=== PATIENT | female | born 1940 | race Caucasian/White ===

== ENCOUNTER 2022-09-27 13:15 | Inpatient (IN) | payer OTHER ==
[~2022-09-27] VITALS: Ht 160 cm; Wt 47.2 kg
[2022-09-27 13:20] VITALS: BP_SYST 142; PULSE 78; RESP 20; TEMP 97.8; O2SAT 95
[2022-09-27 14:25] LABS: BASOPHILS % (AUTO) 0.3 % (0.0-2.0); EOSINOPHILS # (AUTO) 0.1 K/uL (0.0-0.4); EOSINOPHILS % (AUTO) 1.6 % (0.0-4.0); HEMATOCRIT 33.1 % (36-48); HEMOGLOBIN 10.5 g/dL (12.0-16.0); LYMPHOCYTES # (AUTO) 2.2 K/uL (1.0-5.5); MEAN CORPUSCULAR HEMOGLOBIN 29 pg (27-31); MEAN CORPUSCULAR HGB CONC 32 % (32-36); MEAN CORPUSCULAR VOLUME 90 fL (79.0-98.0); MONOCYTES # (AUTO) 0.6 K/uL (0.0-1.0); MONOCYTES % (AUTO) 6.7 % (1.7-9.3); NEUTROPHILS # (AUTO) 5.5 K/uL (1.8-7.7); NEUTROPHILS % (AUTO) 65.4 % (40.0-70.0); PLATELET COUNT (AUTO) 223 K/uL (130-430); RED BLOOD CELL COUNT(AUTO) 3.67 MIL/uL (4.2-6.2); RED CELL DISTRIBUTION WIDTH 15.3 % (9.0-15.0); WHITE BLOOD COUNT (AUTO) 8.4 K/uL (4.8-10.8)
[2022-09-27 14:44] LABS: BILIRUBIN,URINE NEGATIVE (NEGATIVE); BLOOD, URINE 2+ (NEGATIVE); CLARITY/URINE CLOUDY (CLEAR); COLOR,URINE YELLOW (YELLOW); GLUCOSE,URINE NEGATIVE (NEGATIVE); KETONES,URINE TRACE (NEGATIVE); LEUKOCYTE ESTERASE ,URINE 2+ (NEGATIVE); NITRITE, URINE NEGATIVE (NEGATIVE); PH,URINE 7.5 (5.0-8.0); PROTEIN URINE 3+ (NEGATIVE)
[2022-09-27 14:45] LABS: ANION GAP 8 (5-15); CALCIUM 8.2 mg/dL (8.4-11.0); CHLORIDE 108 mmol/L (98-107); CREATININE 1.27 mg/dL (0.55-1.30); GLUCOSE 162 mg/dL (74-106); UREA NITROGEN, BLOOD 27 mg/dL (8-21)
[2022-09-27 14:49] LABS: BACTERIA,URINE MANY /HPF (None Seen); MUCUS,URINE None Seen /LPF (None Seen); WBC,URINE >100 /HPF (0-3)
[2022-09-27 15:03] LABS: ALANINE AMINOTRANSFERASE 12 U/L (12-78); ALBUMIN 2.5 g/dL (3.4-4.8); ASPARTATE AMINOTRANSFERASE 17 U/L (10-37); TOTAL BILIRUBIN 0.2 mg/dL (0.0-1.0)
[2022-09-27] MEDS ORDERED: NACL 0.9% 1,000 ML IV ONE ×2 (15:45→16:45)
[2022-09-27] MEDS ORDERED: cefTRIAXone 1 GM IVPB PREMIX 50 ML IV ONE (15:45)
[2022-09-27] MEDS ORDERED: PIPERACILLIN/TAZOBACTAM 2.25 GM in NS 50 ML IV ONE (17:00)
[2022-09-27] MEDS ORDERED: PIPERACILLIN/TAZOBACTAM 2.25 GM VIAL IV ONE ×2 (18:04→22:35)
[2022-09-27] MEDS ORDERED: VALS160T29 PO (18:08)
[2022-09-27] MEDS ORDERED: ATEN50TA PO (18:08)
[2022-09-27 18:50] VITALS: BP_SYST 154; PULSE 85; RESP 22; TEMP 96.8; O2SAT 95
[2022-09-27 19:00] VITALS: BP_SYST 133; PULSE 76; RESP 18; TEMP 97.6; O2SAT 76
[2022-09-27] MEDS ORDERED: MIRTAZAPINE 15 MG TABLET PO SCH (21:00)
[2022-09-27] MEDS: NACL 0.9% 1,000 ML IV SCH (21:59)
[2022-09-28 00:22] VITALS: BP_SYST 145; PULSE 81; RESP 19; TEMP 97.4; O2SAT 94
[2022-09-28] MEDS ORDERED: PIPERACILLIN/TAZOBACTAM 2.25 GM VIAL IV ONE (00:53)
[2022-09-28] MEDS: NACL 0.9% 1,000 ML IV SCH ×2 (04:00→14:12)
[2022-09-28 05:13] LABS: BASOPHILS % (AUTO) 0.4 % (0.0-2.0); EOSINOPHILS # (AUTO) 0.2 K/uL (0.0-0.4); HEMOGLOBIN 10.1 g/dL (12.0-16.0); LYMPHOCYTES # (AUTO) 2.2 K/uL (1.0-5.5); MEAN CORPUSCULAR HEMOGLOBIN 29 pg (27-31); MEAN CORPUSCULAR HGB CONC 33 % (32-36); MEAN CORPUSCULAR VOLUME 90 fL (79.0-98.0); MONOCYTES # (AUTO) 0.5 K/uL (0.0-1.0); MONOCYTES % (AUTO) 6.7 % (1.7-9.3); NEUTROPHILS # (AUTO) 4.7 K/uL (1.8-7.7); NEUTROPHILS % (AUTO) 61.9 % (40.0-70.0); PLATELET COUNT (AUTO) 228 K/uL (130-430); RED BLOOD CELL COUNT(AUTO) 3.45 MIL/uL (4.2-6.2); RED CELL DISTRIBUTION WIDTH 14.9 % (9.0-15.0); WHITE BLOOD COUNT (AUTO) 7.6 K/uL (4.8-10.8)
[2022-09-28 05:52] LABS: ALANINE AMINOTRANSFERASE 12 U/L (12-78); ALBUMIN 2.4 g/dL (3.4-4.8); ANION GAP 10 (5-15); ASPARTATE AMINOTRANSFERASE 17 U/L (10-37); CALCIUM 7.9 mg/dL (8.4-11.0); CHLORIDE 112 mmol/L (98-107); CREATININE 1.14 mg/dL (0.55-1.30); FREE T4 (FREE THYROXINE) 0.9 ng/dL (0.6-1.6); GLUCOSE 81 mg/dL (74-106); PHOSPHORUS 3.1 mg/dL (2.7-4.5); TOTAL BILIRUBIN 0.3 mg/dL (0.0-1.0); UREA NITROGEN, BLOOD 20 mg/dL (8-21)
[2022-09-28 06:11] LABS: TOTAL IRON BIND. CAPACITY 152 ug/dL (250-450)
[2022-09-28] MEDS: PIPERACILLIN/TAZOBACTAM 2.25 GM in NS 50 ML IV SCH ×5 (06:31→18:21)
[2022-09-28 08:00] VITALS: BP_SYST 176; PULSE 82; RESP 18; TEMP 97.4; O2SAT 97
[2022-09-28] MEDS: ATENOLOL 50 MG TABLET (TENORMIN) PO SCH (09:47)
[2022-09-28 11:04] VITALS: O2SAT 97
[2022-09-28 11:41] VITALS: BP_SYST 151; PULSE 66; RESP 16; TEMP 97.3; O2SAT 95
[2022-09-28 17:25] VITALS: BP_SYST 145; PULSE 69; RESP 17; TEMP 97.6; O2SAT 94
[2022-09-28 20:00] VITALS: BP_SYST 169; PULSE 93; RESP 16; TEMP 97.8; O2SAT 94; O2SAT 97
[2022-09-28] MEDS: MIRTAZAPINE 15 MG TABLET PO SCH (21:39)
[2022-09-29] MEDS: PIPERACILLIN/TAZOBACTAM 2.25 GM in NS 50 ML IV SCH ×4 (00:10→17:38)
[2022-09-29] MEDS: NACL 0.9% 1,000 ML IV SCH ×3 (00:11→22:00)
[2022-09-29 01:01] VITALS: BP_SYST 161; PULSE 74; RESP 18; TEMP 95.9; O2SAT 97
[2022-09-29 04:52] LABS: BASOPHILS % (AUTO) 0.4 % (0.0-2.0); EOSINOPHILS # (AUTO) 0.1 K/uL (0.0-0.4); EOSINOPHILS % (AUTO) 1.8 % (0.0-4.0); HEMATOCRIT 32.1 % (36-48); HEMOGLOBIN 10.3 g/dL (12.0-16.0); LYMPHOCYTES # (AUTO) 2.3 K/uL (1.0-5.5); LYMPHOCYTES % (AUTO) 29.7 % (20.5-51.5); MEAN CORPUSCULAR HEMOGLOBIN 29 pg (27-31); MEAN CORPUSCULAR HGB CONC 32 % (32-36); MEAN CORPUSCULAR VOLUME 90 fL (79.0-98.0); MONOCYTES # (AUTO) 0.6 K/uL (0.0-1.0); MONOCYTES % (AUTO) 7.4 % (1.7-9.3); NEUTROPHILS # (AUTO) 4.8 K/uL (1.8-7.7); NEUTROPHILS % (AUTO) 60.7 % (40.0-70.0); PLATELET COUNT (AUTO) 219 K/uL (130-430); RED BLOOD CELL COUNT(AUTO) 3.58 MIL/uL (4.2-6.2); RED CELL DISTRIBUTION WIDTH 15.4 % (9.0-15.0); WHITE BLOOD COUNT (AUTO) 7.9 K/uL (4.8-10.8)
[2022-09-29 05:23] LABS: ALANINE AMINOTRANSFERASE 10 U/L (12-78); ALBUMIN 2.4 g/dL (3.4-4.8); ANION GAP 10 (5-15); ASPARTATE AMINOTRANSFERASE 16 U/L (10-37); CALCIUM 8.2 mg/dL (8.4-11.0); CHLORIDE 111 mmol/L (98-107); CREATININE 1.31 mg/dL (0.55-1.30); GLUCOSE 91 mg/dL (74-106); TOTAL BILIRUBIN 0.3 mg/dL (0.0-1.0); UREA NITROGEN, BLOOD 15 mg/dL (8-21)
[2022-09-29 08:00] VITALS: BP_SYST 118; PULSE 86; RESP 18; TEMP 97; O2SAT 97
[2022-09-29 08:06] LABS: FOLATE (FOLIC ACID) 11.4 ng/mL (>3.0)
[2022-09-29] MEDS: ATENOLOL 50 MG TABLET (TENORMIN) PO SCH (08:49)
[2022-09-29 12:50] VITALS: BP_SYST 155; PULSE 88; RESP 16; TEMP 97.5; O2SAT 95
[2022-09-29 17:38] VITALS: BP_SYST 150; PULSE 81; RESP 17; TEMP 98; O2SAT 94
[2022-09-29] MEDS ORDERED: CEPH250C PO (17:57)
[2022-09-29] MEDS ORDERED: MIRT-114 PO (17:57)
[2022-09-29] MEDS ORDERED: CYAN100070 PO (18:02)
[2022-09-29] MEDS ORDERED: MULT-1243 PO (18:03)
[2022-09-29] MEDS ORDERED: MULTIVITS,CA,MINERALS/IRON/FA 1 TABLET PO ONE (18:15)
[2022-09-29] MEDS ORDERED: ATENOLOL 50 MG TABLET (TENORMIN) PO ONE (18:15)
[2022-09-29] MEDS ORDERED: CYANOCOBALAMIN 1000 MCG/ML VIAL IM ONE (18:15)
[2022-09-29] MEDS: cefTRIAXone 1 GM in D5W 50 ML IV SCH (20:00)
[2022-09-29] MEDS: MIRTAZAPINE 15 MG TABLET PO SCH ×2 (21:00→21:33)
[2022-09-30 02:08] VITALS: BP_SYST 131; PULSE 98; RESP 17; TEMP 98.6; O2SAT 98
[2022-09-30 08:00] VITALS: BP_SYST 157; PULSE 84; RESP 16; TEMP 97.8; O2SAT 97
[2022-09-30] MEDS: ATENOLOL 50 MG TABLET (TENORMIN) PO SCH (10:04)
[2022-09-30] MEDS: MULTIVITS,CA,MINERALS/IRON/FA 1 TABLET PO SCH (10:05)
[2022-09-30] MEDS: CYANOCOBALAMIN (VITAMIN B-12) 1,000 MCG TABLET PO SCH (10:05)
[2022-09-30 11:53] VITALS: BP_SYST 145; PULSE 69; RESP 14; TEMP 96.8; O2SAT 97
[2022-09-30 17:15] VITALS: BP_SYST 129; PULSE 71; RESP 16; TEMP 96.9; O2SAT 95
[2022-09-30] MEDS: D5LR 1,000 ML IV SCH (17:58)
[2022-09-30] MEDS: cefTRIAXone 1 GM in D5W 50 ML IV SCH (17:58)
[2022-09-30 20:00] VITALS: BP_SYST 155; PULSE 66; RESP 16; TEMP 97.3; O2SAT 96
[2022-10-01] VITALS (9 sets, daily range): BP systolic 112–150; PULSE 69–115; RESP 16–18; TEMP 97.8–98.8; O2SAT 95–97
[2022-10-01 05:25] LABS: BASOPHILS % (AUTO) 0.5 % (0.0-2.0); EOSINOPHILS # (AUTO) 0.2 K/uL (0.0-0.4); EOSINOPHILS % (AUTO) 2.3 % (0.0-4.0); HEMATOCRIT 30.5 % (36-48); HEMOGLOBIN 9.8 g/dL (12.0-16.0); LYMPHOCYTES # (AUTO) 2.2 K/uL (1.0-5.5); LYMPHOCYTES % (AUTO) 28.6 % (20.5-51.5); MEAN CORPUSCULAR HEMOGLOBIN 29 pg (27-31); MEAN CORPUSCULAR HGB CONC 32 % (32-36); MEAN CORPUSCULAR VOLUME 89 fL (79.0-98.0); MONOCYTES # (AUTO) 0.6 K/uL (0.0-1.0); MONOCYTES % (AUTO) 7.6 % (1.7-9.3); NEUTROPHILS # (AUTO) 4.7 K/uL (1.8-7.7); PLATELET COUNT (AUTO) 226 K/uL (130-430); RED BLOOD CELL COUNT(AUTO) 3.43 MIL/uL (4.2-6.2); RED CELL DISTRIBUTION WIDTH 15.5 % (9.0-15.0); WHITE BLOOD COUNT (AUTO) 7.6 K/uL (4.8-10.8)
[2022-10-01 06:22] LABS: ALANINE AMINOTRANSFERASE 9 U/L (12-78); ALBUMIN 2.2 g/dL (3.4-4.8); ANION GAP 8 (5-15); ASPARTATE AMINOTRANSFERASE 16 U/L (10-37); CALCIUM 8.5 mg/dL (8.4-11.0); CHLORIDE 111 mmol/L (98-107); GLUCOSE 87 mg/dL (74-106); TOTAL BILIRUBIN 0.2 mg/dL (0.0-1.0); UREA NITROGEN, BLOOD 11 mg/dL (8-21)
[2022-10-01] MEDS: ATENOLOL 50 MG TABLET (TENORMIN) PO SCH (09:46)
[2022-10-01] MEDS: MULTIVITS,CA,MINERALS/IRON/FA 1 TABLET PO SCH (09:46)
[2022-10-01] MEDS: CYANOCOBALAMIN (VITAMIN B-12) 1,000 MCG TABLET PO SCH (09:46)
[2022-10-01] MEDS ORDERED: MEGESTROL ACETATE 400 MG/10 ML UDC PO ONE (16:30)
[2022-10-01] MEDS ORDERED: KCL 40 mEq in 100 mL (PREMIX) 100 ML IV ONE (16:30)
[2022-10-01] MEDS: KCL 20 mEq in 100 mL (PREMIX) 100 ML IV SCH ×2 (17:54→22:36)
[2022-10-01] MEDS: MIRTAZAPINE 15 MG TABLET PO SCH (22:36)
[2022-10-01] MEDS: cefTRIAXone 1 GM in D5W 50 ML IV SCH (22:36)
[2022-10-02 00:37] VITALS: BP_SYST 127; PULSE 86; RESP 18; TEMP 97.6; O2SAT 96
[2022-10-02] MEDS: D5LR 1,000 ML IV SCH ×2 (03:04→07:15)
[2022-10-02 07:10] VITALS: O2SAT 97
[2022-10-02] MEDS ORDERED: MEGESTROL ACETATE 400 MG/10 ML UDC PO SCH (09:00)
[2022-10-02 09:45] VITALS: BP_SYST 132; PULSE 69; RESP 16; TEMP 98.7; O2SAT 98
[2022-10-02 11:10] LABS: ANION GAP 8 (5-15); CALCIUM 8.8 mg/dL (8.4-11.0); CHLORIDE 110 mmol/L (98-107); CREATININE 0.99 mg/dL (0.55-1.30); GLUCOSE 143 mg/dL (74-106); UREA NITROGEN, BLOOD 19 mg/dL (8-21)
[2022-10-02] MEDS: MULTIVITS,CA,MINERALS/IRON/FA 1 TABLET PO SCH (11:17)
[2022-10-02] MEDS: CYANOCOBALAMIN (VITAMIN B-12) 1,000 MCG TABLET PO SCH (11:17)
[2022-10-02] MEDS: ATENOLOL 50 MG TABLET (TENORMIN) PO SCH (11:18)
[2022-10-02 11:30] VITALS: BP_SYST 152; PULSE 90; RESP 19; TEMP 98.4; O2SAT 96
[2022-10-02] MEDS ORDERED: cloNIDine HCL 0.1 MG TABLET PO ONE ×2 (17:00→17:45)
[2022-10-02] MEDS ORDERED: CARVEDILOL 6.25 MG TABLET (COREG) PO ONE (17:45)
[2022-10-02 18:20] VITALS: BP_SYST 132; PULSE 70; RESP 16; TEMP 98.7; O2SAT 98
[2022-10-02] MEDS ORDERED: CARVEDILOL 6.25 MG TABLET (COREG) PO SCH (21:00)
== END 2022-10-02 18:45 | DRG 640 ==
LOC: SED 13:15 → STU 16:37 → SMU 10-01 11:15
PROVIDERS: ADMIT Internal Medicine; ATTEND Internal Medicine
PROC: 0HQ0XZZ Repair Scalp Skin, External Approach (ICD-10-PCS; principal; 2022-09-27)
DX: E86.0 Dehydration (principal); E43 Unspecified severe protein-calorie malnutrition; N39.0 Urinary tract infection, site not specified; Z68.1 Body mass index [BMI] 19.9 or less, adult; S00.00XA Unspecified superficial injury of scalp, initial encounter; Z66 Do not resuscitate; F03.90 Unspecified dementia, unspecified severity, without behavioral disturbance, psychotic disturbance, mood disturbance, and anxiety; I25.10 Atherosclerotic heart disease of native coronary artery without angina pectoris; M47.892 Other spondylosis, cervical region; D64.9 Anemia, unspecified; B96.20 Unspecified Escherichia coli [E. coli] as the cause of diseases classified elsewhere; I11.0 Hypertensive heart disease with heart failure; I50.9 Heart failure, unspecified; W18.30XA Fall on same level, unspecified, initial encounter; Y93.89 Activity, other specified; Z79.899 Other long term (current) drug therapy; Y92.89 Other specified places as the place of occurrence of the external cause; Y99.8 Other external cause status
CPT/HCPCS: 36415; 70450-TC; 71045; 72125-TC; 76376; 80048; 80053; 81000; 82607; 82746; 83540; 83550; 83605; 83735; 83880; 84100; 84439; 84484; 85025; 85730-TC; 87040; 87086; 93005; 93306; 96361; 96365; 97110-GP; 97163-GP; 97530-GP; 99285; G0378; J0696; J2543; J3480; J7030; J7042; J7060; J7120